=== PATIENT | male | born 1940 | race Caucasian/White ===

== ENCOUNTER → 2016-02-18 | Outpatient (CLI) | payer OTHER ==
[~2016-02-18] MED LIST: ASPI81TA28 PO; ATOR-22 PO; CEPH500C2 PO; CHOL100010 PO; COEN1CAP17 PO; METO-217 PO; OMEP20CA59 PO; OXYC7.5T65 PO
== END | disposition home or self-care (01) ==
LOC: C.LABSPEC 17:29
PROVIDERS: ATTEND Urology
DX: N43.3 Hydrocele, unspecified (principal)

== ENCOUNTER → 2016-04-12 | Outpatient (CLI) | payer OTHER ==
--- NOTE | 2016-04-12 12:43 | DIAGNOSTIC IMAGING REPORT ---
CHEST 2 VIEWS ROUTINE CLINICAL HISTORY: Preoperative chest. Hydrocele. COMPARISON STUDY: No previous studies for comparison. FINDINGS: The cardiac and mediastinal contours are normal. There is no evidence of focal pulmonary consolidation. There is no evidence of failure. No pleural effusions are visualized.[ There are degenerative changes within the dorsal spine with bridging osteophytes. IMPRESSION: No active disease in the chest. Electronically signed by: Landon Diaz M.D. 04/12/2016 12:42 PM Dictated Date/Time: 04/12/2016 12:41 PM
[2016-04-12 12:57] LABS: BASO % 0.3 %; BASO ABS # 0.02 K/uL (0-0.2); COMPLETE YES; EOS % 1.3 %; IG% 0.1 %; LYMPH % 19.6 %; LYMPH ABS # 1.39 K/uL (1.2-3.4); MEAN CELL VOLUME 86.3 fL (80-100); MEAN CORPUSCULAR HEMOGLOBIN 28.6 pg (25-34); MEAN CORPUSCULAR HGB CONC 33.2 g/dl (32-36); MEAN PLATELET VOLUME 12.2 fL (7.4-10.4); MONO % 9.5 %; NEUT % 69.2 %; PLATELET COUNT 195 K/uL (130-400); WHITE BLOOD COUNT 7.08 K/uL (4.8-10.8)
[2016-04-12 13:07] LABS: URINE APPEARANCE CLEAR (CLEAR); URINE BILIRUBIN NEG (NEG); URINE COLOR YELLOW; URINE NITRITE NEG (NEG); URINE PH 6.5 (4.5-7.5); URINE SPECIFIC GRAVITY 1.001 (1.000-1.030); UROBILINOGEN NEG (NEG)
[2016-04-12 13:20] LABS: MANUAL MICROSCOPIC REQUIRED? NO; REVIEW REQ? NO
[2016-04-12 13:31] LABS: BLOOD UREA NITROGEN 12 mg/dl (7-18); BUN/CREATININE RATIO 14.3 (10-20); CALCIUM 9.1 mg/dl (8.5-10.1); CARBON DIOXIDE 28 mmol/L (21-32); CHLORIDE 105 mmol/L (98-107); CREATININE 0.87 mg/dl (0.60-1.40); GLUCOSE 93 mg/dl (70-99); POTASSIUM 4.2 mmol/L (3.5-5.1); SODIUM 142 mmol/L (136-145)
== END | disposition home or self-care (01) ==
LOC: C.RAD 11:59
PROVIDERS: ATTEND Urology
DX: N43.3 Hydrocele, unspecified (principal)

== ENCOUNTER 2016-04-30 07:07 | Day surgery (SDC) | payer OTHER ==
[2016-04-15 15:55] VITALS: BMI 26.0
[~2016-04-30] VITALS: Ht 162.6 cm; Wt 70.0 kg
[~2016-04-30 07:07] MED LIST changes: +BACITRACIN OINT 15 GM TUBE ONE; +BUPIVACAINE 0.5 % 5 MG/1 ML MPF 30ML VIAL ONE; +CEFAZOLIN 2000 MG/60 ML D5W IV SCH; -CEPH500C2 PO; +DEXAMETHASONE SOD INJ 4 MG/ML VIAL ONE; +FENTANYL CITRATE INJ 50 MCG/1 ML 2 ML VIAL ONE; +LACTATED RINGER'S 1000ML 1,000 ML IV SCH; +LIDOCAINE HCL 2% 2 ML VIAL (20MG/ML) ONE; +MIDAZOLAM HCL 1 MG/ML 2ML VIAL ONE; +ONDANSETRON INJ 2 MG/ML 2 ML VIAL ONE; -OXYC7.5T65 PO; +PROPOFOL IV EMULSION 10 MG/ML 20 ML VIAL IV ONE
[2016-04-30 07:28] VITALS: BP 175/84; PULSE 73; TEMP 36.9; O2SAT 98; Ht 162.6 cm; Wt 70.0 kg
--- NOTE | 2016-04-30 07:39 | History & Physical Bridge Note ---
H&P Re-Evaluation Bridge Note: I have examined the patient, reviewed the History & Physical and in the interval since the performance of the History & Physical I have noted the following changes of clinical significance: No changes noted
[2016-04-30] MEDS ORDERED: CEPH500C2 PO (07:50)
[2016-04-30] MEDS ORDERED: EpHEDrine SULFATE 50MG/5ML SYR ONE (08:42)
[2016-04-30] MEDS ORDERED: ATROPINE SULFATE 0.1 MG/ML 5ML SYR IV PRN (08:45)
[2016-04-30] MEDS ORDERED: METOCLOPRAMIDE HCL INJ 5 MG/ML 2 ML VIAL IV PRN (08:45)
[2016-04-30] MEDS ORDERED: EpHEDrine SULFATE INJ 50 MG/ML AMP IV PRN (08:45)
[2016-04-30] MEDS ORDERED: PHENYLEPHRINE 100MCG/ML 5ML SYR IV PRN (08:45)
[2016-04-30] MEDS ORDERED: DEXAMETHASONE SOD INJ 4 MG/ML VIAL IV PRN (08:45)
[2016-04-30] MEDS ORDERED: MoRPHine SULFATE 10 MG/ML CARP/VIAL IV PRN (08:45)
[2016-04-30] MEDS ORDERED: LABETALOL HCL IV 5 MG/ML 20ML IV PRN (08:45)
[2016-04-30] MEDS ORDERED: ONDANSETRON INJ 2 MG/ML 2 ML VIAL IV PRN (08:45)
[2016-04-30] MEDS ORDERED: KETOROLAC TROMETHAMINE 30 MG/ML VIAL IV. PRN (08:45)
[2016-04-30] MEDS ORDERED: FENTANYL CITRATE INJ 50 MCG/1 ML 2 ML VIAL IV PRN (08:45)
--- NOTE | 2016-04-30 09:35 | [facility] Post Operative Brief Note ---
Immediate Operative Summary Operative Date Apr 30, 2016. Pre-Operative Diagnosis Recurrent Left Hydrocele Post-Operative Diagnosis Recurrent Left Hydrocele Procedure(s) Performed Incision, Drainage and Exploration of Recurrent Left Hydrocele Surgeon Dr. Timothy Pina Senior Technical Manager Surgeon(s) None Estimated Blood Loss 10 ml Findings Necrotic tissue and >200 cc of bloody fluid drained. Specimens A. Recurrent Left Hydrocele Sac Recurrent Left Hydrocele Fluid cultured for C&S. Drains 1/4 inch [place] drain dependent aspect of wound Anesthesia GALMA + local Complication(s) None Disposition Recovery Room / PACU
--- NOTE | 2016-04-30 09:35 | Discharge Instructions ---
Discharge Instructions Date of Service Apr 30, 2016. Admission Reason for Admission: Left Hydrocele Discharge Discharge Diagnosis / Problem: Recurrent L hydrocoele s/p drainage Discharge Goals Goal(s): Decrease discomfort, Improve function, Therapeutic intervention Activity Recommendations Activity Limitations: as noted below Lifting Limitations: gradually increase as tolerated Exercise/Sports Limitations: rest today, gradually increase as tolerated May Resume Sexual Activity: when tolerated Shower/Bathe: tomorrow (may shower, no tub bath with drain in place) Driving or Machine Use: resume 1 day after discharge (if not using pain meds) . Discharge Diet Recommended Diet: Regular Diet Procedures Procedures Performed: Drainage and exploration of recurrent left hydrocoele Pending Studies Studies pending at discharge: yes List of pending studies: Pathology report, cultures Medical Emergencies . Who to Call and When: Medical Emergencies: If at any time you feel your situation is an emergency, please call 911 immediately. . Non-Emergent Contact Non-Emergency issues call your: Urologist Call Non-Emergent contact if: you have a fever, temperature is above 101, your pain is not controlled, your pain is worsening, your pain is unusual for you, your pain is concerning you, wound has increased drainage, wound has increased redness, wound has increased pain, you have any medication questions . . "Provider Documentation" section prepared by Timothy Pina. VTE Core Measure Inpt VTE Proph given/why not?: SCD's
[2016-04-30] MEDS ORDERED: OXYCODONE/ACETAMINOPHEN 5-325 TAB PO PRN (09:45)
[2016-04-30 10:10] VITALS: BP 151/72; PULSE 73; TEMP 36.1; O2SAT 96
--- NOTE | 2016-04-30 10:30 | Anesthesiology Progress Note ---
Anesthesia Post Op Note Date & Time Apr 30, 2016 at 10:30 Vital Signs Pain Intensity: 0 Vital Signs Past 12 Hours Date Time Temp Pulse Resp B/P Pulse Ox O2 Delivery O2 Flow Rate FiO2 04/30/16 10:10 36.1 73 16 151/72 96 Room Air 04/30/16 10:05 36.5 69 20 148/74 98 Room Air 04/30/16 09:55 68 13 146/73 98 Room Air 04/30/16 09:45 67 13 146/64 99 Mask 10 04/30/16 09:35 67 14 153/67 100 Mask 10 04/30/16 09:25 36.6 65 16 151/72 100 Mask 10 04/30/16 07:28 36.9 73 18 175/84 98 Room Air Notes Mental Status: alert / awake / arousable, participated in evaluation Pt Amnestic to Procedure: Yes Nausea / Vomiting: adequately controlled Pain: adequately controlled Airway Patency, RR, SpO2: stable & adequate BP & HR: stable & adequate Hydration State: stable & adequate Anesthetic Complications: no major complications apparent
[2016-04-30 10:40] VITALS: BP 153/77; PULSE 70; TEMP 36.2; O2SAT 97
--- NOTE | 2016-04-30 10:57 | OPERATIVE REPORT ---
DATE OF OPERATION: 04/30/2016 PREOPERATIVE DIAGNOSIS: Recurrent left hydrocele. POSTOPERATIVE DIAGNOSIS: Same. PROCEDURE: Drainage and exploration of recurrent left hydrocele. SURGEON: Dr. Timothy Pina. TIRE BUFFER: None. ANESTHESIA: General anesthesia with laryngeal mask plus local at incision site. COMPLICATIONS: None. SPECIMENS SENT TO PATHOLOGY: Drained fluid for culture and sensitivity, recurrent hydrocele tissue for pathologic analysis. DRAINS LEFT IN PLACE: Include a quarter inch Nak[place] drain to the dependent aspect of the wound. ESTIMATED BLOOD LOSS: 10 mL COMPLICATIONS: None. FINDINGS: Necrotic tissue within the confines of a somewhat inflammatory left hydrocele sac with old bloody fluid, greater than 200 mL drained. BRIEF HISTORY: Mr. Woods is a pleasant 76-year-old male who I have seen previously for history of left-sided scrotal swelling and hydrocele. He underwent an uncomplicated hydrocelectomy in December 2015, but unfortunately, the fluid reaccumulated. He has presently a large amount, in the short term, on the left scrotal sac, although not as full as preoperatively. Imaging has demonstrated no evidence of communication to the area and previous ultrasound images, including a testicular ultrasound, showing a viable testis within the scrotum were reviewed. He has undergone an office drainage with some relief, but apparently with reaccumulation. He is here today for more definitive drainage placement and exploration of the area. Please see H\T\P for further details. Intravenous Ancef is provided for antibiotic coverage and SCDs used for DVT prophylaxis. PROCEDURE: The patient was properly identified and brought to the operative suite. After identification of appropriate consent on the chart, general anesthesia with laryngeal mask was initiated and the patient was prepped and draped in standard fashion for this procedure. time lock expert-out procedure was followed. After instilling local on incision, the dependent aspect of the previous hydrocele incision was opened until the fluid collection was reached. This was opened with a 15 blade and as noted, greater than 200 mL of old bloody fluid was noted and without clots. The wound was opened sufficiently to allow for evaluation and exploration of the area. Necrotic tissue and an inflammatory rind were appreciated around the reaccumulated hydrocele. The hydrocele sac had been removed previously; so this was felt to represent a reaccumulation. Some of the necrotic tissue and the thickened sac was removed and sent for pathologic analysis. A generous irrigation of the area was carried out. On inspection, the testis was not clearly defined and felt to be encased within inflammatory fluid. Previous imaging studies were inspected. Right side was noted to be within normal limits. Cord was tracked into the left hemiscrotum, but then the testis was lost within the posterior inflammation of the scrotal sac. There was consideration that perhaps an occult testicular injury had led to the swelling and postoperative reaccumulation and that the necrotic tissue present represented a necrotic or damaged testis on this side. However, seeing the presence of an apparent viable testis well defined, a month after his hydrocelectomy, this seemed less likely. Further exploration was not felt to be warranted, as it would not change the outcome in either case. Wound was generously irrigated and a Nakul drain was placed from the superior to inferior scrotum in the dependent aspect of the wound. This was secured in place with a 2-0 silk suture. Wound was closed in 2 layers using a 2-0 Vicryl for the deep tissues of the scrotum and a 3-0 chromic at the level of the skin. Resolution of the patient's scrotum with no evidence of active bleeding and excellent hemostasis was appreciated. Scrotal support with fluffs was placed and anesthesia was reversed. The patient was transferred to recovery room in stable condition. FOLLOWUP CARE: The patient will be discharged home with a prescription for Keflex for his postoperative antibiotic coverage. He notes he still has pain medication from his previous procedure. Outpatient appointments are confirmed. The patient is instructed to contact us should he note any fevers, chills, nausea, vomiting or other significant difficulties in the postoperative period. I attest to the content of the Intraoperative Record and any orders documented therein. Any exceptio ns are noted below.
[2016-04-30 11:10] VITALS: BP 154/70; PULSE 88; TEMP 36; O2SAT 93
== END 2016-04-30 11:10 | disposition home or self-care (01) ==
LOC: C.ACU 07:07
PROVIDERS: ATTEND Urology
DX: N43.3 Hydrocele, unspecified (principal); I10 Essential (primary) hypertension; E78.5 Hyperlipidemia, unspecified; Z98.890 Other specified postprocedural states; Z82.49 Family history of ischemic heart disease and other diseases of the circulatory system; Z79.82 Long term (current) use of aspirin; Z79.899 Other long term (current) drug therapy

== ENCOUNTER → 2016-06-22 | Outpatient (CLI) | payer OTHER ==
[~2016-06-22] MED LIST changes: -BACITRACIN OINT 15 GM TUBE ONE; -BUPIVACAINE 0.5 % 5 MG/1 ML MPF 30ML VIAL ONE; -CEFAZOLIN 2000 MG/60 ML D5W IV SCH; +CEPH500C2 PO; -DEXAMETHASONE SOD INJ 4 MG/ML VIAL ONE; -FENTANYL CITRATE INJ 50 MCG/1 ML 2 ML VIAL ONE; -LACTATED RINGER'S 1000ML 1,000 ML IV SCH; -LIDOCAINE HCL 2% 2 ML VIAL (20MG/ML) ONE; -MIDAZOLAM HCL 1 MG/ML 2ML VIAL ONE; -OMEP20CA59 PO; -ONDANSETRON INJ 2 MG/ML 2 ML VIAL ONE; -PROPOFOL IV EMULSION 10 MG/ML 20 ML VIAL IV ONE
[2016-06-22 18:25] LABS: CHOLESTEROL/HDL RATIO 3.9
== END | disposition home or self-care (01) ==
LOC: C.LABPVFM 14:17
PROVIDERS: ATTEND Family Medicine
DX: E78.5 Hyperlipidemia, unspecified (principal)

== ENCOUNTER → 2017-06-29 | Outpatient (CLI) | payer OTHER ==
[~2017-06-29] MED LIST changes: -CEPH500C2 PO
[2017-06-29 17:52] LABS: ALBUMIN 3.7 gm/dl (3.4-5.0); ALKALINE PHOSPHATASE 93 U/L (45-117); ALT/SGPT 38 U/L (12-78); AST/SGOT 27 U/L (15-37); BLOOD UREA NITROGEN 10 mg/dl (7-18); CALCIUM 8.4 mg/dl (8.5-10.1); CARBON DIOXIDE 29 mmol/L (21-32); CHOLESTEROL 135 mg/dl (0-200); CREATININE 1.06 mg/dl (0.60-1.40); GLUCOSE 87 mg/dl (70-99); LDL CHOLESTEROL CALCULATED 70 mg/dl; POTASSIUM 4.2 mmol/L (3.5-5.1); SODIUM 140 mmol/L (136-145); TOTAL PROTEIN 7.1 gm/dl (6.4-8.2)
== END | disposition home or self-care (01) ==
LOC: C.LABPVFM 13:44
PROVIDERS: ATTEND Family Medicine
DX: E78.5 Hyperlipidemia, unspecified (principal); S99.912A Unspecified injury of left ankle, initial encounter; X58.XXXA Exposure to other specified factors, initial encounter